=== PATIENT | male | born 1960 | race African-American/Black ===

== ENCOUNTER 2019-01-24 11:54 | Emergency (ER) | payer MEDICARE, MEDICAID ==
[~2019-01-24] VITALS: Ht 172.7 cm; Wt 105.0 kg
[2019-01-24 12:15] VITALS: BP 141/78
[2019-01-24] MEDS ORDERED: IBUPROFEN 800MG TABLET PO ONE (14:30)
== END 2019-01-24 14:59 | disposition home or self-care (01) ==
LOC: ER 11:54
DX: H92.02 Otalgia, left ear (principal); D64.9 Anemia, unspecified; J44.9 Chronic obstructive pulmonary disease, unspecified; I10 Essential (primary) hypertension; F17.200 Nicotine dependence, unspecified, uncomplicated; Z98.890 Other specified postprocedural states; Z88.1 Allergy status to other antibiotic agents
CPT/HCPCS: 99283

== ENCOUNTER 2019-10-10 14:45 | Emergency (ER) | payer MEDICARE, MEDICAID ==
[~2019-10-10] VITALS: Ht 172.7 cm; Wt 79.0 kg
[2019-10-10] MEDS ORDERED: KETOROLAC 30MG/ML VIAL IV NR (16:30)
[2019-10-10] MEDS ORDERED: KETOROLAC 30MG/ML VIAL IM ONE (16:30)
[2019-10-10] MEDS ORDERED: ONDANSETRON 4MG ODT PO NR (17:30)
[2019-10-10] MEDS ORDERED: MECLIZINE 25MG TABLET PO ONE (17:45)
[2019-10-10 18:19] VITALS: BP 122/74
== END 2019-10-10 18:20 | disposition home or self-care (01) ==
LOC: ER 14:59
DX: M16.0 Bilateral primary osteoarthritis of hip (principal); N30.90 Cystitis, unspecified without hematuria; R10.31 Right lower quadrant pain; R11.0 Nausea; Z87.442 Personal history of urinary calculi
CPT/HCPCS: 74176; 96372; 99284; J1885; J8597; Q0162

== ENCOUNTER 2020-07-24 10:29 | Emergency (ER) | payer MEDICARE, MEDICAID ==
[~2020-07-24] VITALS: Ht 172.7 cm; Wt 79.0 kg
[2020-07-24] MEDS ORDERED: ONDANSETRON HCL 4MG/2ML INJ IV ONE (12:00)
[2020-07-24 12:30] LABS: BASOPHILS % 0.4 % (0.0-2.0); EOSINOPHILS % 2.6 % (0.0-5.0); HEMATOCRIT. 35.1 % (42.0-52.0); HEMOGLOBIN. 11.5 g/dL (14.0-18.0); LYMPHOCYTES % 31.5 % (20.0-50.0); MEAN CORPUSCULAR HEMOGLOBIN 26.8 pg (28.0-32.0); MEAN CORPUSCULAR VOLUME 81.7 fL (80.0-94.0); MEAN PLATELET VOLUME 9.5 fl (7.4-10.4); MONOCYTES % 8.5 % (2.0-8.0); PLATELET 205 x1000/uL (130-400)
[2020-07-24 12:37] LABS: CHLORIDE 108 mEq/L (98-107)
[2020-07-24 12:39] LABS: CLARITY URINE CLEAR (CLEAR); COLOR URINE YELLOW (YELLOW); KETONES URINE NEGATIVE (NEGATIVE); LEUKOCYTE ESTERASE URINE NEGATIVE (NEGATIVE); NITRITE URINE NEGATIVE (NEGATIVE); OCCULT BLOOD URINE NEGATIVE (NEGATIVE); PH URINE 6.5 (4.5-8.0); PROTEIN URINE NEGATIVE (NEGATIVE); SPECIFIC GRAVITY URINE 1.023 (1.005-1.030)
[2020-07-24 12:45] LABS: CREATINE KINASE 96 IU/L (39-308)
[2020-07-24 12:51] LABS: PROTHROMBIN TIME 10.9 sec (9.6-11.0)
[2020-07-24 15:00] VITALS: BP 155/93
== END 2020-07-24 15:30 | disposition home or self-care (01) ==
LOC: ER 10:29
DX: S20.229A Contusion of unspecified back wall of thorax, initial encounter (principal); W20.1XXA Struck by object due to collapse of building, initial encounter; Y93.9 Activity, unspecified; Y92.9 Unspecified place or not applicable; M54.9 Dorsalgia, unspecified; M54.2 Cervicalgia; R10.9 Unspecified abdominal pain; K59.00 Constipation, unspecified; I10 Essential (primary) hypertension; B20 Human immunodeficiency virus [HIV] disease; D64.9 Anemia, unspecified; J44.9 Chronic obstructive pulmonary disease, unspecified; Z88.1 Allergy status to other antibiotic agents; Z86.19 Personal history of other infectious and parasitic diseases; Z87.442 Personal history of urinary calculi
CPT/HCPCS: 36415; 74176; 80053; 81003; 82550; 85025; 93005; 99284